=== PATIENT | female | born 1980 | race Two or more races ===

== ENCOUNTER 2023-09-07 18:07 | Emergency (ER) | payer OTHER ==
[~2023-09-07] VITALS: Ht 154.9 cm; Wt 56.7 kg
[2023-09-07] MEDS ORDERED: GLUMETZA500 MG PO (18:15)
[2023-09-07] MEDS ORDERED: KETOROLAC TROMETHAMINE 60 MG VIAL IM ONE (19:00)
[2023-09-07] MEDS ORDERED: DICLOFENAC SODI75 MG PO (21:11)
== END 2023-09-07 21:25 | disposition home or self-care (01) ==
LOC: ER 18:07
DX: R07.89 Other chest pain (principal)